=== PATIENT | male | born 1940 | race Caucasian/White ===

== ENCOUNTER → 2017-02-14 | Outpatient (CLI) | payer MEDICARE, OTHER ==
[~2017-02-14] MED LIST: ACET-2321 PO; ASPI81TA2 PO; CLON0.5T23 PO; OMEP20CA10 PO; PROM25SU RECTALLY; SUCR1ORA3 PO; SUCR1ORA3 PO CHEW; TADA20TA PO
[2017-02-14 11:26] LABS: HCT - HEMATOCRIT 47.3 % (41-53); HGB - HEMOGLOBIN 15.5 GM/DL (13.5-17.5); MEAN CORPUSCULAR HGB 31.4 UUG (26-34); MEAN CORPUSCULAR HGB CONC(MCHC 32.8 GM/DL (31-37); MEAN CORPUSCULAR VOLUME 95.7 UM3 (80-100); MEAN PLATELET VOLUME 9.4 UM3 (9.4-12.4); RED BLOOD COUNT 4.94 M/MM3 (4.50-5.90); WBC - WHITE BLOOD COUNT 6.3 T/MM3 (4.5-11.0)
[2017-02-14 11:37] LABS: BASOPHILS # (MANUAL) 0.1 T/MM3 (0-0.2); EOSINOPHILS # (MANUAL) 0.8 T/MM3 (0-0.5); LYMPHOCYTES # (MANUAL) 1.8 T/MM3 (1-4.8); MONOCYTES # (MANUAL) 0.6 T/MM3 (0-0.8); NEUTROPHILS #(MANUAL)-ABSOLUTE 3.2 T/MM3 (1.8-7.7); TOTAL CELLS COUNTED 100 %
[2017-02-14 11:39] LABS: ALBUMIN 4.4 G/DL (3.5-5.0); ALBUMIN/GLOBULIN RATIO 1.3 RATIO (1.1-2.2); ALKALINE PHOSPHATASE 84 U/L (38-126); ALT (SGPT) 34 U/L (21-72); ANION GAP 10 MEQ/L (5-15); AST (SGOT) 26 U/L (17-59); BUN/CREATININE RATIO 16 RATIO (6-26); CALCIUM 9.6 MG/DL (8.4-10.2); CHLORIDE 103 MEQ/L (98-107); CO2 - CARBON DIOXIDE 30 MEQ/L (22-30); CREATININE 1.4 MG/DL (0.8-1.5); GLOMERULAR FILTRATION RATE 50; GLUCOSE 90 MG/DL (75-110); LDH 330 U/L (313-618); MAGNESIUM 2.3 MG/DL (1.6-2.3); POTASSIUM 5.1 MEQ/L (3.6-5); SODIUM 143 MEQ/L (134-144); TOTAL PROTEIN 7.7 G/DL (6.3-8.2)
[2017-02-14 11:47] LABS: IGA - IMMUNOGLOBULIN A 399.15 MG/DL (70-400); IGG - IMMUNOGLOBULIN G 1093.96 MG/DL (700-1600); IGM - IMMUNOGLOBULIN M 53.31 MG/DL (40-230)
--- NOTE | 2017-02-14 13:14 | DI ---
Indication: ITS.REASON: D47.2 Monoclonal gammopathy OSSEOUS SURVEY 1 YR TO ADULT: Comparison: None Technique: Skeletal survey performed Findings: Calvarium: No abnormality Cervical spine: Degenerative changes but no lytic lesions identified. No compression fractures or significant malalignments identified. Most prominent disc space narrowing C5-6. Thoracic spine: Mild degenerative change without any definitive lytic lesions or fractures. Bilateral humeri: Mild degenerative changes about the shoulder joint but no lytic lesions or pathologic fractures Right and left ribs: Postoperative changes about both axillary regions with vascular clips but no bony abnormality appreciated. Lumbar spine: No acute findings identified. Bilateral forearms: No acute bony findings. Pelvis: No acute bony findings. Bilateral hips and femurs no acute bony findings appreciated. Bilateral tibia fibula no bony abnormality appreciated. Impression: Patient showed no definitive lytic lesions or pathologic fractures. Some mild degenerative changes are noted but no specific indication of punched-out bony lesions are noted. .
== END ==
LOC: IMA 10:46
PROVIDERS: ATTEND Internal Medicine Hematology & Oncology
DX: D47.2 Monoclonal gammopathy (principal)
CPT/HCPCS: 36415; 80053; 82164; 82232; 82784; 83615; 83735; 83883; 84155; 84165; 85007; 85027; 85652; 86334

== ENCOUNTER → 2017-02-18 | Outpatient (CLI) | payer MEDICARE, OTHER ==
--- NOTE | 2017-02-18 12:13 | DI ---
Indication: ITS.REASON: N18.3 CKD, STAGE 3 PROCEDURE: US RENAL: Encounter: Initial Comparison: None Technique: Grayscale and color Doppler sonographic imaging of both kidneys and bladder was performed. FINDINGS: Both kidneys are present with normal cortical thickness and echogenicity. No evidence for collecting system dilatation, contour deforming mass, nephrolithiasis, or abnormal perinephric fluid collection. The right kidney measures 9.5 cm in length, and the left kidney measures 9.1 cm in length. Bladder appears sonographically normal without debris or mass. Prevoid bladder volume of 304.4 mL. Post void residual volume of 15.4 mL. IMPRESSION: Normal renal sonogram. .
== END ==
LOC: IMA 10:51
PROVIDERS: ATTEND Internal Medicine Nephrology
DX: N18.3 Chronic kidney disease, stage 3 (moderate) (principal)